=== PATIENT | female | born 1935 | race Caucasian/White ===

== ENCOUNTER 2016-09-08 09:58 | Day surgery (SDC) | payer BC ==
--- NOTE | ~2016-09-08 | EGD ---
EGD REPORT [facility] [address] [address] NAME: ERIC VINCENT : [birth year] STATUS : REG [facility]#: [id number] AGE: 80 ADM/REG DATE : 09/08/16 MR#: [id number] REPORT SERV DATE: 09/08/16 DICTATED BY: MALLORY SADLER DATE: 09/08/16 REPORT STATUS : Draft [facility] DATE: 09/08/16 Endoscopy Center Patient Name: Eric Vincent Date of : 1935 Attending MD: MALLORY SADLER MD Procedure Date No Time: 09/08/2016 Procedure: Upper GI endoscopy Indications: Epigastric abdominal pain Referring MD: SYLVIA CLIFTON MD Medicines: as per anesthesia Complications: No immediate complications. Procedure: Pre-Anesthesia Assessment: - ASA Grade Assessment: II - A patient with mild systemic disease. After obtaining informed consent, the endoscope was passed under direct vision. Throughout the procedure, the patient's blood pressure, pulse, and oxygen saturations were monitored continuously. The GIF H190 [id number] was introduced through the mouth, and advanced to the third part of duodenum. The upper GI endoscopy was accomplished without difficulty. The patient tolerated the procedure. Findings: A mild Schatzki ring (acquired) was found at the gastroesophageal junction. Localized moderate inflammation characterized by erythema and friability was found in the gastric antrum. Biopsies were taken with a cold forceps for histology. The cardia and gastric fundus were normal on retroflexion. Localized mild inflammation characterized by erythema was found in the duodenal bulb. Impression: - Mild Schatzki ring. - Gastritis. Biopsied. - Duodenitis. Recommendation: - Await pathology results. Procedure Code(s): --- Professional --- 37684, Esophagogastroduodenoscopy, flexible, transoral; with biopsy, single or multiple Diagnosis Code(s): --- Professional --- K22.2, Esophageal obstruction EGD REPORT [place] [address] [place] [address] NAME: ERIC VINCENT : [birth year] STATUS : [place] [facility] [place] [id number] AGE: 80 ADM/REG DATE : 09/08/16 MR#: [id number] REPORT SERV DATE: 09/08/16 DICTATED BY: MALLORY SADLER. DATE: 09/08/16 REPORT STATUS : Draft TRANSCRIBED BY: [employer] [employer] DATE: 09/08/16 K29.70, Gastritis, unspecified, without bleeding K29.80, Duodenitis without bleeding R10.13, Epigastric pain CPT copyright 2013 [employer]. All rights reserved. The codes documented in this report are preliminary and upon rip/mould operator review may be revised to meet current compliance requirements. MALLORY SADLER MD 09/08/2016 12:53 PM This report has been signed electronically. Number of Addenda: 0 Note Initiated On: 09/08/2016 12:29 PM Scope Withdrawal Time 0 hours 0 minutes 0 seconds [address] [place] [address]
--- NOTE | ~2016-09-08 | EGD ---
EGD REPORT [facility] [address] [address] NAME: ERIC GALVEZ : [birth year] STATUS : REG [facility]#: [id number] AGE: 80 ADM/REG DATE : 09/08/16 MR#: [id number] REPORT SERV DATE: 09/08/16 DICTATED BY: MALLORY SADLER DATE: 09/08/16 REPORT STATUS : Draft [facility]: [facility] DATE: 09/08/16 Endoscopy Center Patient Name: Eric Galvez Date of : 1935 Attending MD: MALLORY SADLER MD Procedure Date No Time: 09/08/2016 Procedure: Colonoscopy Indications: Colon cancer screening in patient at increased risk: Family history of colon polyps Referring MD: SYLVIA CLIFTON MD Medicines: as per anesthesia Complications: No immediate complications. Procedure: Pre-Anesthesia Assessment: - ASA Grade Assessment: II - A patient with mild systemic disease. After I obtained informed consent, the scope was passed under direct vision. Throughout the procedure, the patient's blood pressure, pulse, and oxygen saturations were monitored continuously. The PCF [id number] was introduced through the anus and advanced to the cecum, identified by appendiceal orifice and ileocecal valve. The colonoscopy was performed without difficulty. The patient tolerated the procedure. The quality of the bowel preparation was adequate to identify polyps. Findings: The perianal and digital rectal examinations were normal. Multiple small and large-mouthed diverticula were found in the sigmoid colon and in the descending colon. Internal hemorrhoids were found during endoscopy and were mild. Impression: - Diverticulosis in the sigmoid colon and in the descending colon. - Internal hemorrhoids. Recommendation: - Continue present medications. Procedure Code(s): --- Professional --- 84741, Colonoscopy, flexible, proximal to splenic flexure; diagnostic, with or without collection of specimen(s) by brushing or washing, with or without colon decompression (separate procedure) Diagnosis Code(s): --- Professional --- K64.8, Other hemorrhoids EGD REPORT [facility] [address] [place] [address]. [place] [address] NAME: ERIC GALVEZ : 37 [place]US : [place] [facility] [place] [id number] AGE: 80 ADM/REG DATE : 09/08/16 MR#: [id number] REPORT SERV DATE: 09/08/16 DICTATED BY: MALLORY SADLER. DATE: 09/08/16 REPORT STATUS : Draft TRANSCRIBED BY: [facility] DATE: 09/08/16 K57.30, Diverticulosis of large intestine without perforation or abscess without bleeding Z12.11, Encounter for screening for malignant neoplasm of colon Z83.71, Family history of colonic polyps CPT copyright 2013 [employer]. All rights reserved. The codes documented in this report are preliminary and upon record maker review may be revised to meet current compliance requirements. MALLORY SADLER MD 09/08/2016 1:16 PM This report has been signed electronically. Number of Addenda: 0 Note Initiated On: 09/08/2016 12:26 PM Scope Withdrawal Time 0 hours 10 minutes 31 seconds [address] [facility], [place] [address]
[~2016-09-08 09:58] MED LIST: ASAB PO; BENICAR40 PO; BIOTIN FORTE5 MG OR; BIOTIN5 MG PO; DIOV160 PO; ESTROGEN-METHYLTEST PO; GYNODIOL0.5 MG PO; LIPITOR20 PO; LOP100 PO; MULTIPLE VIT PO; NORV5 PO; TYLENOL PM PO; VITAMIN D1000 UNI1 PO; ZETIA PO
== END 2016-09-08 23:59 | disposition home or self-care (01) ==
LOC: DMU 09:58
PROVIDERS: Internal Medicine Gastroenterology
PROC: 0DJD8ZZ Inspection of Lower Intestinal Tract, Via Natural or Artificial Opening Endoscopic (ICD-10-PCS; principal; 2016-09-08 11:30)
PROC: 0DB68ZX Excision of Stomach, Via Natural or Artificial Opening Endoscopic, Diagnostic (ICD-10-PCS; 2016-09-08 11:30)
DX: Z12.11 Encounter for screening for malignant neoplasm of colon (principal); K57.30 Diverticulosis of large intestine without perforation or abscess without bleeding; K64.8 Other hemorrhoids; K22.2 Esophageal obstruction; K29.70 Gastritis, unspecified, without bleeding; K29.80 Duodenitis without bleeding; Z83.71 Family history of colonic polyps; I10 Essential (primary) hypertension; E78.00 Pure hypercholesterolemia, unspecified; Z90.710 Acquired absence of both cervix and uterus; Z90.49 Acquired absence of other specified parts of digestive tract; Z98.42 Cataract extraction status, left eye; Z87.442 Personal history of urinary calculi
CPT/HCPCS: 43239; G0105; 88305; J2405